=== PATIENT | male | born 1975 | race Caucasian/White ===

== ENCOUNTER 2016-09-21 16:03 | Emergency (ER) | payer SELFPAY ==
[~2016-09-21] VITALS: Ht 182.9 cm; Wt 59.0 kg
[~2016-09-21 16:03] MED LIST: IOHEXOL-350 100 ML BOTTLE ONE; LIDOCAINE HCL 1% 20ML VIAL (Pyxis) INJ ONE
[2016-09-21] MEDS ORDERED: ALBUTEROL (0.083%) 2.5MG/3ML NEB HHN STA ×2 (17:45→20:32)
[2016-09-21] MEDS ORDERED: SODIUM CHLORIDE 0.9% 1,000 ML IV ONE (17:45)
[2016-09-21] MEDS ORDERED: ONDANSETRON HCL 4MG/2ML VIAL IV STA (17:45)
[2016-09-21] MEDS ORDERED: METHYLPREDNISOLONE SOD SUCC 125 MG/2 ML VIAL IV STA (17:45)
[2016-09-21] MEDS ORDERED: IPRATROPIUM BROMIDE (0.02%) 0.5MG/2.5ML NEB HHN STA ×2 (17:45→20:32)
[2016-09-21 18:08] LABS: BASOPHILS % 0.6 % (0.0-2.0); D-DIMER 0.34 mg/L FEU (<0.50); EOSINOPHILS % 1.5 % (0.0-5.0); HEMATOCRIT. 44.9 % (42.0-52.0); HEMOGLOBIN. 15.8 g/dL (14.0-18.0); INR 1.1; LYMPHOCYTES % 34.8 % (20.0-50.0); MEAN CORPUSCULAR HEMOGLOBIN 32.7 pg (28.0-32.0); MEAN CORPUSCULAR HGB CONC 35.1 g/dL (31.0-37.0); MEAN CORPUSCULAR VOLUME 93.2 fL (80.0-94.0); MEAN PLATELET VOLUME 8.3 fl (7.4-10.4); MONOCYTES % 6.3 % (2.0-8.0); NEUTROPHILS % 56.8 % (40.0-76.0); PLATELET 191 x1000/uL (130-400); PROTHROMBIN TIME 10.9 sec; RED BLOOD CELL COUNT 4.82 mill/uL (4.7-6.1); RED CELL DISTRIBUTION WIDTH 12.7 % (11.6-14.6); WHITE BLOOD COUNT 8.4 x1000/uL (4.5-11.0)
[2016-09-21 18:16] LABS: ALANINE AMINOTRANSFERASE 23 IU/L (13-61); ALBUMIN 3.9 g/dL (3.4-5.0); ANION GAP 13; CALCIUM 8.7 mg/dL (8.5-10.1); CARBON DIOXIDE 29 mEq/L (21-32); CHLORIDE 100 mEq/L (98-107); ETHANOL BLOOD < 10 mg/dL; INDEX HEMOLYSI 1 (1-3); INDEX ICTERIC 1 (1-4); INDEX LIPEMIC 1 (1-3); NT PRO B-TYPE NATRIURETIC PEP 28 pg/mL (5-125); TROPONIN I < 0.02 ng/mL (0.00-0.04); UREA NITROGEN BLOOD 5 mg/dL (7-21); eGFR > 60 mL/min (>60)
[2016-09-21 22:00] VITALS: BP 120/99
== END 2016-09-21 22:10 | disposition home or self-care (01) ==
LOC: ER 17:44
DX: J45.30 Mild persistent asthma, uncomplicated (principal); R03.0 Elevated blood-pressure reading, without diagnosis of hypertension; F17.210 Nicotine dependence, cigarettes, uncomplicated; Z71.6 Tobacco abuse counseling; F12.90 Cannabis use, unspecified, uncomplicated
CPT/HCPCS: 36415; 71010; 71275; 80053; 83605; 83880; 84484; 85025; 85379; 85610; 93005; 93970; 94640; 96361; 96374; 96375; 99285; G0482; J2405; J2930; J3490; J7611; Q9967; J7030